=== PATIENT | female | born 1985 | race Caucasian/White ===

== ENCOUNTER 2018-08-14 12:05 | Day surgery (SDC) | payer BC ==
[2018-08-14] MEDS ORDERED: ONDANSETRON HCL IV 4 MG/2 ML VIAL IVP ONE ×2 (12:12→19:18)
[2018-08-14] MEDS ORDERED: KETOROLAC 30 MG/ML VIAL IVP ONE ×2 (12:12→17:26)
--- NOTE | 2018-08-14 12:14 | Emergency Department Record ---
History of Present Illness - General Chief Complaint: Abdominal Pain Stated Complaint: ABDOMINAL PAIN Time Seen by Provider: 08/14/18 12:05 Source: Patient Mode of Arrival: Ambulatory Limitations: No limitations - History of Present Illness Initial Comments: 32 yo female presents with right sided abdominal pain that started about 00:45 AM. The pain is sharp and woke her from her sleep. The pain has been fairly constant but the intensity is slowly decreasing. She has nausea without vomiting. No fever. No diarrhea. No hematuria. Normal menstrual cycles. MD Complaint: Abdominal pain Onset/Timin -: Hour(s) Location: RUQ, RLQ Radiation: None Migration to: No migration Severity scale (1-10): 4 Quality: Cramping Consistency: Constant Improves With: Nothing Worsens With: Nothing Context: Other Associated Symptoms: Denies other symptoms - Related Data Patient : No Allergies Allergy/AdvReac Type Severity Reaction Status Date / Time loracarbef [From Lorabid] Allergy Intermediate hives Verified 08/14/18 12:10 Travel Screening - Travel/Exposure Within Last 30 Days Have you traveled within the last 30 days?: No Past Medical History - SOCIAL HISTORY Smoking Status: Never smoker Alcohol Use: None Drug Use: None - RESPIRATORY Hx Respiratory Disorders: No - CARDIOVASCULAR Hx Cardio Disorders: No - NEURO Hx Neuro Disorders: No - GI Hx GI Disorders: Yes Hx Reflux: Yes - Hx Genitourinary Disorders: No - ENDOCRINE Hx Endocrine Disorders: No - MUSCULOSKELETAL Hx Musculoskeletal Disorders: No - PSYCH Hx Psych Problems: No - HEMATOLOGY/ONCOLOGY Hx Hematology/Oncology Disorders: No Family Medical History Any Significant Family History?: No Physical Exam - General General Appearance: Alert, Oriented x3, Cooperative, No acute distress Limitations: No limitations - Head Head exam: Atraumatic, Normal inspection - Eye Eye exam: Normal appearance, PERRL. negative: Conjunctival injection, Scleral icterus - ENT ENT exam: Normal exam Ear exam: Normal external inspection Nasal Exam: Normal inspection Mouth exam: Normal external inspection - Neck Neck exam: Normal inspection - Respiratory Respiratory exam: Normal lung sounds bilaterally. negative: Respiratory distress - Cardiovascular Cardiovascular Exam: Regular rate, Normal rhythm, Normal heart sounds - GI/Abdominal GI/Abdominal exam: Soft, Tenderness (Tender lateral to the umbilicus and more just superior toward the RUQ. NO tender deep on the RLQ). negative: Distended, Rebound, Rigid - Rectal Rectal exam: Deferred - exam: Deferred - Extremities Extremities exam: Normal inspection Image of Full Body: 1 - very soft abdomen, tender lateral and mildly upper quadrant, lower quadrant is very soft and not tender. NO pelvic or suprapubic tenderness - Back Back exam: Denies: CVA tenderness (R), CVA tenderness (L) - Neurological Neurological exam: Alert, Oriented X3 - Psychiatric Psychiatric exam: Normal affect, Normal mood - Skin Skin exam: Dry, Intact, Normal color, Warm Course - Reevaluation(s) Reevaluation #1: 08/14/18 12:39 The patient was seen and examined The patient states onset was sudden. The pain is at the level or just about the umbilicus. We discussed US initially. She has had some food intolerance in the form of dyspepsia over the last few months. If negative may need CT scan as well. 08/14/18 13:02 The CBC was reviewed. WBC is 14 The CMP is normal The UA is normal The HCG is negative 08/14/18 13:30 The US was negative for gall stones with a normal gall bladder. Steatosis. CBD is 6.6 08/14/18 16:03 CT is consistent with early developing appendicitis Dr Giron notified with plan for OR at [facility] Antibiotics ordered and additional IVF. Medical Decision Making - Lab Data Result diagrams: 08/14/18 12:15 08/14/18 12:15 Disposition Disposition: Discharge Clinical Impression: Appendicitis Disposition: Home, Self-Care Condition: (2) Stable Time of Disposition: 16:07 Quality - Quality Measures Quality Measures: N/A - Blood Pressure Screening Does Patient Have Any of the Following: No Blood Pressure Classification: Pre-Hypertensive BP Reading Systolic Measurement: 124 Diastolic Measurement: 85 Screening for High Blood Pressure: < Pre-Hypertensive BP, F/U Documented > [G8950] Pre-Hypertensive Follow-up Interventions: Referral to alternative/primary care provider.
[2018-08-14 12:29] LABS: URINE APPEARANCE CLEAR; URINE BILIRUBIN NEGATIVE (NEGATIVE); URINE BLOOD NEGATIVE (NEGATIVE); URINE COLOR YELLOW; URINE GLUCOSE (UA) NEGATIVE (NEGATIVE); URINE KETONE NEGATIVE (NEGATIVE); URINE LEUKOCYTE ESTERASE TRACE (NEGATIVE); URINE NITRITE NEGATIVE (NEGATIVE); URINE PROTEIN NEGATIVE (NEGATIVE); URINE UROBILINOGEN 0.2 E.U./dL (0.20 - 1.00)
[2018-08-14 12:30] LABS: ABSOLUTE NEUTROPHIL COUNT 10.35; BASO % 0.2 % (0-6); EOS % 3.4 % (0-6); GRAN % 72.7 % (47-80); HEMATOCRIT 40.7 % (35.0-47.0); HEMOGLOBIN 13.7 gm/dl (11.6-16.0); LYMPH % 18.7 % (16-45); MEAN CELL VOLUME 89.6 fl (81-97); MEAN CORPUSCULAR HEMOGLOBIN 30.2 pg (27-33); MEAN CORPUSCULAR HGB CONC 33.7 g/dl (32-36); MEAN PLATELET VOLUME 9.8 fl (7.4-10.4); PLATELET COUNT 313 K/uL (130-400); RED BLOOD COUNT 4.54 M/uL (3.80-5.40); RED CELL DISTRIBUTION WIDTH 13.3 % (11.5-14.5); WHITE BLOOD COUNT W/O DIFF 14.3 K/uL (4.2-12.2)
[2018-08-14 12:34] LABS: HCG,QUALITATIVE URINE NEGATIVE (NEGATIVE)
[2018-08-14 12:37] LABS: URINE EPITHELIAL CELLS 0 - 2 (FEW); URINE RBC NONE SEEN (NONE SEEN); URINE WBC 0 - 2 (0-2/hpf)
[2018-08-14 12:43] LABS: BLOOD UREA NITROGEN 7 mg/dL (6-20); CREATININE 0.5 mg/dL (0.5-0.9); EST GLOMERULAR FILTRATION RATE > 60 mL/min
[2018-08-14 12:44] LABS: LIPASE 11 U/L (13-60)
[2018-08-14 12:46] LABS: GLUCOSE,RANDOM 99 mg/dL (74-109)
[2018-08-14 12:48] LABS: ALB/GLOB RATIO 1.6 (1.1-1.8); ALBUMIN 4.3 g/dL (4.0-5.0); ALKALINE PHOSPHATASE 66 U/L (35-104); ALT/SGPT 19 U/L (<33); AST/SGOT 16 U/L (10.0-35.0)
[2018-08-14] MEDS ORDERED: 0.9 % SODIUM CHLORIDE 1,000 ML BAG IV ONE (13:33)
[2018-08-14] MEDS ORDERED: METRONIDAZOLE IVPB 500 MG/100 ML BAG IVPB ONE (16:00)
[2018-08-14] MEDS ORDERED: 0.9 % SODIUM CHLORIDE 1000ML 1,000 ML IV ONE (16:00)
[2018-08-14] MEDS ORDERED: CEFTRIAXONE 1GM/50ML BAG 1 GM/50 ML BAG IVPB ONE (16:02)
[2018-08-14] MEDS ORDERED: FENTANYL PF 100MCG/2ML VIAL IV ONE (17:26)
[2018-08-14] MEDS ORDERED: MIDAZOLAM HCL 2MG/2ML VIAL IV ONE (17:26)
[2018-08-14] MEDS ORDERED: SUCCINYLCHOLINE 20 MG/ML 10ML IVP ONE (17:26)
[2018-08-14] MEDS ORDERED: LIDOCAINE 2% MDV (20MG/ML) 20ML VIAL IV ONE (17:26)
[2018-08-14] MEDS ORDERED: DEXAMETHASONE 4 MG/ML 1ML VIAL IVP ONE (17:26)
[2018-08-14] MEDS ORDERED: DIPHENHYDRAMINE HCL 50 MG/ML VIAL IVP ONE (17:26)
[2018-08-14] MEDS ORDERED: ROCURONIUM BROMIDE 50MG/5ML VIAL IV ONE (17:26)
[2018-08-14] MEDS ORDERED: HYDROMORPHONE HCL 2 MG/ML VIAL IV ONE (17:26)
[2018-08-14] MEDS ORDERED: SUGAMMADEX SODIUM 200 MG/2 ML VIAL IV ONE (17:26)
[2018-08-14] MEDS ORDERED: PROPOFOL 10 MG/ML VIAL IV ONE (17:26)
[2018-08-14] MEDS ORDERED: SEVOFLURANE 250 ML INH ONE (17:26)
[2018-08-14] MEDS ORDERED: BUPIVACAINE 0.25% W/EPI MPF 30ML VIAL SQ ONE (17:57)
[2018-08-14] MEDS ORDERED: RINGERS SOLUTION,LACTATED 1,000 ML IV ONE (18:06)
[2018-08-14] MEDS ORDERED: HYDROCODONE/APAP 5/325MG TABLET PO PRN ×2 (19:17)
[2018-08-14] MEDS ORDERED: HYDROMORPHONE HCL 2 MG/ML VIAL IVP PRN (19:19)
[2018-08-14] MEDS ORDERED: ONDANSETRON HCL IV 4 MG/2 ML VIAL IVP PRN (19:24)
--- NOTE | 2018-08-15 13:50 | Operative Note ---
DATE OF SURGERY: 08/14/2018 SURGEON: Vamsi Giron DO PREOPERATIVE DIAGNOSIS: Acute appendicitis. POSTOPERATIVE DIAGNOSIS: Acute appendicitis. OPERATION: Laparoscopic appendectomy. INDICATION: The patient is a 32-year-old female who presented with 12-hour history of abdominal pain. This did settle in her right mid abdomen. Workup in [place] [facility] included a CT scan and laboratory values. She had a leukocytosis as well as CT scan findings with acute appendicitis. Her clinical exam fit the same. We did discuss appendectomy. Risks, benefits, and alternatives were discussed. Risks include bleeding, infection, postop abscess formation, need for delayed or repeat operation. She understood this fully. Consent was signed. Questions answered. PROCEDURE: She was taken to the operating room and placed in the supine position. General anesthesia was administered per the department of anesthesia. The patient's abdomen was prepped in the usual sterile fashion. Her left arm was tucked to the side. At this time, adequate timeout was performed. She did receive preoperative antibiotics as well as DVT prophylaxis. At this time, the infraumbilical region was anesthetized with a total of 5 mL of 0.25% Sensorcaine with epinephrine. A 2 cm infraumbilical incision was made. This was carried down bluntly to the anterior rectus fascia. This was incised. Baljit clamps were placed on the fascial edges and brought up into the wound. Stay sutures of 0 Vicryl were placed. Posterior rectus sheath was identified and incised. The peritoneal cavity was entered bluntly. At this time, a 10 mm blunt Batsheva port was placed. Adequate pneumoperitoneum established. The patient was then rotated into steep Trendelenburg position with rotation to the left. Additional 5 mm right subcostal and 5 mm suprapubic ports were placed. I did have to advance the 10 mm port due to the patient's obesity. At this time, the appendix was located in the right mid abdomen. This was left anteriorly. The mesoappendix was taken out serially with the FATUMA Harmonic. The base of the appendix appeared to be a bit necrotic. At this time, an Endo-OMAYRA stapling device was used to transect the appendix. I did have to take a rim of cecum as well secondary to the necrotic base. The staple line was inspected and noted to be hemostatic. There was no leaking noted. At this time, the appendix and rim of cecum were placed in the EndoCatch bag. This was brought out through the umbilical port. The right lower quadrant was rechecked, found to be hemostatic. There was no bleeding noted. The rest of the external exam of the small and large bowel appeared grossly normal. There was no purulent fluid noted in the pelvis. At this time, pneumoperitoneum was released. All ports were removed. The anterior rectus fascia was closed with 0 Vicryl in a [id number] fashion. The skin of all 3 ports was closed with 4-0 Vicryl. She was taken to the recovery room in stable condition. FINDINGS ON SURGERY: Acute suppurative appendicitis with necrotic base requiring resection with rim of cecum. RADHA
--- NOTE | 2018-08-16 15:27 | ULTRASOUND REPORT ---
EXAM: ULTRASOUND OF THE ABDOMEN LIMITED HISTORY: RIGHT UPPER QUADRANT ABDOMINAL PAIN FOR THREE HOURS LAST NIGHT AFTER EATING PIZZA. TECHNIQUE: Ultrasound examination of the right upper abdomen was performed. Comparison: None. FINDINGS: The pancreatic tail is obscured by overlying bowel gas. The remainder of the pancreas is visualized and normal in appearance. The abdominal aorta is without aneurysmal dilatation. The intrahepatic IVC is patent. The liver appears somewhat coarsened in echotexture. This is most commonly seen with steatosis. Hepatitis and cirrhosis are less likely. No hepatic mass. No intrahepatic biliary ductal dilatation. The common hepatic duct diameter of 6.6 mm is slightly prominent. Correlation with serum bilirubin and alkaline phosphatase levels is recommended. The gallbladder is without cholelithiasis, gallbladder wall thickening or pericholecystic fluid. There is a negative sonographic Archer's sign. Screening evaluation of the right kidney does not demonstrate hydronephrosis or mass with the right kidney measuring 12.5 cm in length. No focal abnormality demonstrated within the right lower quadrant. IMPRESSION: 1. THE LIVER APPEARS MILDLY COARSENED IN ECHOTEXTURE. THIS IS MOST COMMONLY SEEN WITH STEATOSIS. 2. THE COMMON HEPATIC DUCT DIAMETER OF 6.6 MM IS MILDLY PROMINENT THOUGH NO INTRAHEPATIC BILIARY DUCTAL DILATATION IS SEEN. CORRELATION WITH SERUM BILIRUBIN AND ALKALINE PHOSPHATASE LEVELS IS RECOMMENDED. NO EVIDENCE OF ACUTE CHOLECYSTITIS. JOB NUMBER: [id number] MTDD
--- NOTE | 2018-08-17 05:53 | CT SCAN REPORT ---
EXAM: CT SCAN ABDOMEN/PELVIS W CONTRAST HISTORY: RIGHT-SIDED ABDOMINAL PAIN. TECHNIQUE: CT of the abdomen and pelvis with 100 mL Omnipaque-300. COMPARISON: No pertinent prior CT exams. FINDINGS: LUNG BASES: Clear of any acute process. LIVER: No specific hepatic lesion evident. GALLBLADDER: Normal. BILIARY TREE: Normal. PANCREAS: Normal. SPLEEN: Normal. ADRENAL GLANDS: Normal. KIDNEYS: No evidence of mass, calcified stone or hydronephrosis. AORTA: No aneurysm or dissection. Aortic branches are opacified with contrast. INFERIOR VENA CAVA: Normal. RETROPERITONEUM: There is no sign of adenopathy, mass, or hematoma. ABDOMINAL WALL: Intact. MESENTERY: There is no sign of free air or fluid. There are no suspicious mesenteric lymph nodes. There are some nonspecific lymph nodes visible in the right lower quadrant. They are nonenlarged. There is no inflammatory change visible in the right lower quadrant. STOMACH: Normal distention. No sign of wall thickening or obstruction. SMALL BOWEL: No distention or wall thickening. No sign of obstruction. The terminal ileum appears normal. COLON: There is no distention or wall thickening. There is no sign of any colitis or diverticulitis. There are a few scattered diverticula in the sigmoid colon. RECTUM: Normal. APPENDIX: There is a mild hazy appearance of the appendix with a diameter of 14 mm suggesting the possibility of developing appendicitis. An appendicolith is not visible. REPRODUCTIVE ORGANS: There is no mass or cyst of the adnexa. Uterus is unremarkable. BLADDER: Normal. SKELETAL STRUCTURES: There are no suspicious lytic or blastic lesions involving the pelvis, sacrum, or lumbar vertebral bodies. IMPRESSION: 1. POSSIBLE EARLY APPENDICITIS DEVELOPING. NO SIGN OF ANY COMPLICATION YET. 2. NO EVIDENCE OF ANY OTHER SPECIFIC ACUTE ABDOMEN OR PELVIS PATHOLOGY. JOB NUMBER: [id number] [facility]
== END 2018-08-14 20:55 | disposition home or self-care (01) ==
LOC: ER 12:05 → SUR 17:25 → ER 17:29 → MEDSURG 19:02 → SUR 20:55
PROVIDERS: ATTEND Surgery
DX: K35.80 Unspecified acute appendicitis (principal); R11.0 Nausea; E66.9 Obesity, unspecified; K21.9 Gastro-esophageal reflux disease without esophagitis; Z87.891 Personal history of nicotine dependence
CPT/HCPCS: 74177; 76705; 80053; 81001; 81025; 83690; 85025; 96365; 96366; 96368; 96375; 99285; J0330; J0696; J1200; J1885; J2405; J3490; J7030; J7120